=== PATIENT | male | born 1950 | race Caucasian/White ===

== ENCOUNTER → 2016-08-23 | Outpatient (CLI) | payer BC ==
--- NOTE | 2016-08-23 12:36 | ECHOS ---
DATE OF SERVICE: 08/23/2016 AGE: 65Y SEX: M HT: 71 WT: 179 lbs. Protocol Rashaad: X Others: Stress Echo Stage: Dur. of Exercise: 9 minutes *Heart Rate Blood Pressure *Rest: 76 Rest: 133/70 * *Max. Achieved: 140 Maximum BP: 148/70 85% PMHR: 133 100% PMHR: 157 *METS: 10.5 INDICATIONS: Chest pain. MEDICATIONS: Patient was exercised for a total period of 9 minutes. Peak heart rate of 140 was achieved. Maximum blood pressure of 148/70 mmHg was noted. Resting EKG shows normal sinus rhythm with normal FL interval and QRS duration and normal ST-T waves. No ST segment depression suggestive of ischemia is noted. The baseline echocardiographic images reveal a normal left ventricular chamber size with normal left ventricular systolic function. In the immediate postexercise period, normal increase in the wall thickness and contractility is noted. FINAL IMPRESSION: 1. This stress echocardiographic study is negative for stress-induced ischemia. 2. EKG portion of the stress test is not suggestive of ischemia. 3. The patient's exercise tolerance is normal.
== END | disposition home or self-care (01) ==
LOC: RADNMMAIN 09:48
PROVIDERS: ATTEND Internal Medicine Geriatric Medicine
DX: R07.9 Chest pain, unspecified (principal); Z79.82 Long term (current) use of aspirin
CPT/HCPCS: 93017; 93350

== ENCOUNTER → 2021-04-11 | Outpatient (CLI) | payer MEDICARE ==
--- NOTE | 2021-04-11 08:15 | CT ---
EXAMINATION TYPE: CT brain wo con DATE OF EXAM: 04/11/2021 COMPARISON: None HISTORY: Headache x [address] DLP: [address] of the brain was performed. The ventricles, basal cisterns and sulci overlying the cerebral convexities demonstrate mild enlargem ent. There is no evidence for intracranial hemorrhage or sulcal effacement. There is decreased attenuation about the periventricular white matter and deep white matter of both c erebral hemispheres, compatible with chronic small vessel ischemia. Differential diagnosis does inclu de demyelination. No mass effects are seen.No midline shift. Osseous calvarium is intact. If symptoms persist consider MRI. Mucosal thickening left maxillary sinus. IMPRESSION: 1. Age related atrophic and chronic small vessel ischemic change without acute intracranial process s een at this time.
== END | disposition home or self-care (01) ==
LOC: RADCTMAIN 06:57
PROVIDERS: ATTEND Internal Medicine Geriatric Medicine
DX: I67.82 Cerebral ischemia (principal); G31.89 Other specified degenerative diseases of nervous system
CPT/HCPCS: 70450

== ENCOUNTER → 2024-09-22 | Day surgery (SDC) | payer MEDICARE ==
[~2024-09-22] MED LIST: PROPOFOL 10 MG/ML 20 ML VIAL IV ONE
[2024-09-22] MEDS: LACTATED RINGERS 1,000 ML IV SCH (12:24)
[2024-09-22] MEDS: IV FLUID CONTINUATION 1,000 ML IV ONE (12:24)
[2024-09-22 12:25] VITALS: TEMP 97.4
[2024-09-22 13:14] VITALS: RESP 18
[2024-09-22 13:36] VITALS: BP 119/75; PULSE 75
--- NOTE | 2024-09-22 21:30 | P.PCN ---
Date of Procedure: 09/22/24 Preoperative Diagnosis: Rectal pain Blood per rectum Postoperative Diagnosis: Diverticulosis Internal hemorrhoid Procedure(s) Performed: Colonoscopy Anesthesia: MAC Surgeon: Meghna Marroquin Pathology: none sent Condition: stable Disposition: same day Indications for Procedure: 74-year-old male presents today for colonoscopy secondary to rectal pain and some rectal bleeding. Risks, benefits and alternatives were provided to the patient. He does not have family history of colon cancer or personal history of colon cancer. Plan is for colonoscopy. Operative Findings: Diverticulosis Mild internal hemorrhoids Description of Procedure: The patient was brought to the endoscopy suite and placed in left lateral decubitus position and adequate sedation was achieved using conscious sedation. Digital rectal exam was performed and mild internal hemorrhoids were palpated. An endoscope was then placed in the rectum and advanced to the cecum as identified by landmarks including the appendiceal orifice and the ileocecal valve. The prep was good. The colonoscope was then slowly withdrawn, examining for any mucosal abnormalities. The cecum, ascending, transverse, descending and sigmoid colon were visualized adequately. There were no large neoplastic lesions noted throughout the colon. Mild amount of diverticulosis was noted in the sigmoid colon. Hemostasis was maintained. Retroflexion was performed in the rectum and mild internal hemorrhoids were noted. Excess air was removed, the colonoscope withdrawn and the procedure terminated. The patient was then transferred to the recovery unit in stable condition. Repeat colonoscopy should be performed in based on patient's symptoms due to patient's age.
== END | disposition home or self-care (01) ==
LOC: ORWHC2ENDO 10:51
PROVIDERS: ATTEND Surgery
DX: K57.30 Diverticulosis of large intestine without perforation or abscess without bleeding (principal); K64.8 Other hemorrhoids; K21.9 Gastro-esophageal reflux disease without esophagitis; Z79.899 Other long term (current) drug therapy
CPT/HCPCS: 45378; J2704